=== PATIENT | female | born 1945 | race Caucasian/White ===

== ENCOUNTER 2016-12-23 10:30 | Emergency (ER) | payer MEDICARE ==
[~2016-12-23] VITALS: Ht 170.2 cm; Wt 96.0 kg
[2016-12-23 10:40] VITALS: BP 154/91; PULSE 77; RESP 20; TEMP 98; O2SAT 98
[2016-12-23] MEDS ORDERED: LOSA100T PO (10:44)
[2016-12-23] MEDS ORDERED: ASPI1TAB69 PO (10:44)
[2016-12-23] MEDS ORDERED: ATOR40TA16 PO (10:44)
[2016-12-23] MEDS ORDERED: LEVO75TA3 PO (10:44)
[2016-12-23] MEDS ORDERED: RESP: RACEPINEPHRINE 2.25% 0.5 ML NEB NEB ONE (11:00)
[2016-12-23] MEDS ORDERED: DEXAMETHASONE SOD PHOS 20 MG/5 ML VIAL IM ONE (11:00)
--- NOTE | 2016-12-23 11:02 | PD ---
HPI Chief Complaint: Respiratory Symptoms Time Seen by Provider: 10:52 Travel History International Travel<30 days: No Contact w/Intl Traveler<30days: No Traveled to known affect area: No History of Present Illness HPI This patient complains of harsh barky croup-like cough that started yesterday. Duration 24 hours. Severity is moderate. She has history of mild COPD but quit smoking 25 years ago. She tried using an inhaler at home but it was empty. No chest pain. No fever. No choking episodes. She was able to talk and swallow okay. No alleviating factors. PFSH Past Medical History High Cholesterol: Yes COPD: Yes Diminished Hearing: No Hypertension: Yes Thyroid Disease: Yes Influenza Vaccination: Yes ?: Not Past Surgical History Appendectomy: Yes Joint Replacement: Yes (right knee) Tonsillectomy: Yes Social History Alcohol Use: No Tobacco Use: No Allergies-Medications (Allergen,Severity, Reaction): Coded Allergies: Penicillin (Verified Allergy, Severe, Hives, 12/23/16) Reported Meds & Prescriptions Reported Meds & Active Scripts Active Reported Aspirin 81 Mg Tabdr 81 Mg PO HS Atorvastatin (Atorvastatin Calcium) 40 Mg Tab 40 Mg PO HS Levothyroxine (Levothyroxine Sodium) 75 Mcg Tab 75 Mcg PO DAILY Losartan (Losartan Potassium) 100 Mg Tab 100 Mg PO DAILY Review of Systems General / Constitutional: No: Fever Eyes: No: Visual changes HENT: No: Headaches Cardiovascular: No: Chest Pain or Discomfort Respiratory: Positive: Cough, No: Shortness of Breath Gastrointestinal: No: Abdominal Pain Genitourinary: No: Dysuria Musculoskeletal: No: Pain Skin: No Rash Neurologic: No: Weakness Psychiatric: No: Depression Endocrine: No: Polydipsia Hematologic/Lymphatic: No: Easy Bruising Physical Exam Narrative GENERAL: Well-nourished, well-developed patient with a loud harsh barking cough SKIN: Focused skin assessment reveals no rash and nodules. Skin is Warm and dry. HEAD: Atraumatic. Normocephalic. EYES: Pupils equal and round. No scleral icterus. No injection or drainage. ENT: No nasal bleeding or discharge. Mucous membranes pink and moist. NECK: Trachea midline. No JVD. CARDIOVASCULAR: Regular rate and rhythm. No murmur appreciated. RESPIRATORY: No accessory muscle use. Some rhonchi. No crackles or wheezing. Breath sounds equal bilaterally. GASTROINTESTINAL: Abdomen soft, non-tender, nondistended. Hepatic and splenic margins not palpable. MUSCULOSKELETAL: No obvious deformities. No clubbing. No cyanosis. No edema. NEUROLOGICAL: Awake and alert. No obvious cranial nerve deficits. Motor grossly within normal limits. Normal speech. PSYCHIATRIC: Appropriate mood and affect; insight and judgment normal. Data Data Last Documented VS Vital Signs Date Time Temp Pulse Resp B/P Pulse Ox O2 Delivery O2 Flow Rate FiO2 12/23/16 10:44 98 Room Air 12/23/16 10:40 98.0 77 20 154/91 Orders Racemic Epinephrine 2.25% Neb (Racepinep (12/23/16 11:00) Dexamethasone Inj (Decadron Inj) (12/23/16 11:00) Soft Tissue Neck (12/23/16 ) MDM Medical Decision Making Medical Screen Exam Complete: Yes Emergency Medical Condition: Yes Medical Record Reviewed: Yes Differential Diagnosis Croup, epiglottitis, whooping cough Narrative Course I have reviewed the patient's electronic medical record. I gave her a racemic epinephrine nebulizer I reviewed her soft tissue neck x-ray which is normal I gave her 10 mg IM Decadron On recheck she feels improved Saturations are good I wrote her antibiotic and prednisone and refilled her inhaler Hope for gradual resolution, return if worse Diagnosis Primary Impression: Croup Additional Instructions: The patient was advised to follow up with their physician and return if they worsen. Med/Other Pt SpecificInfo: Prescription(s) given Scripts Azithromycin (Zithromax Z-Gus)250 Mg [id number] Mg PO DIRECTED #1 DSPK Ref 0 500 MG (2 tabs) day 1, then 1 tab days 2-5. Prov:tK Xavier MD 12/23/16 Albuterol 18 GM Inh (Ventolin Hfa 18 GM Inh)90 Mcg/Act Aer2 Puff INH Q4H PRN ( SHORTNESS OF BREATH) #1 INHALER Ref 0 Prov:Kt Xavier MD 12/23/16 Prednisone 20 Mg Tab40 Mg PO DAILY #10 TAB Ref 0 Take 40 mg (2 tablets) daily for 5 days Prov:Kt Xavier MD 12/23/16 Disposition: 01 DISCHARGE HOME Condition: Stable Kt Xavier MD Dec 23, 2016 11:02
--- NOTE | 2016-12-23 11:34 | RADHPO ---
EXAM DATE/TIME: 12/23/2016 11:08 [facility] COMPARISON: No previous studies available for comparison. INDICATIONS : Wheezing, throat feels swollen, croup MEDICAL HISTORY : Chronic obstructive pulmonary disease. SURGICAL HISTORY : None. ENCOUNTER: Initial ACUITY: 1 day PAIN SCORE: 0/10 LOCATION: Bilateral neck FINDINGS: Two view examination of the soft tissues of the neck demonstrates the hypopharyngeal airway to have a grossly normal configuration. The trachea is midline. No radiopaque foreign bodies are seen. 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 CONCLUSION: No acute disease. Destiny Dexter MD on December 23, 2016 at 11:32 Board Certified Radiologist. This report was verified electronically.
[2016-12-23] MEDS ORDERED: VENTAER INH (11:41)
[2016-12-23] MEDS ORDERED: ZITHTAB PO (11:41)
[2016-12-23] MEDS ORDERED: PRED20 PO (11:41)
[2016-12-23 11:46] VITALS: BP 158/71
== END 2016-12-23 12:14 | disposition home or self-care (01) ==
LOC: PHED 10:30
DX: J05.0 Acute obstructive laryngitis [croup] (principal); E78.00 Pure hypercholesterolemia, unspecified; J44.9 Chronic obstructive pulmonary disease, unspecified; E07.9 Disorder of thyroid, unspecified
CPT/HCPCS: 70360; 94664; 96372; 99283; J1100